=== PATIENT | male | born 1990 | race Caucasian/White ===

== ENCOUNTER 2023-07-01 20:03 | Inpatient (IN) | payer OTHER ==
[2023-07-01] MEDS ORDERED: HUMULIN R 100 UNITS in Sodium Chloride 0.9% 100 ML IVPB SCH ×3 (21:30→22:15)
[2023-07-01] MEDS ORDERED: Electrolyte Replacement Protocol 1 EACH IVPB SCH (21:54)
[2023-07-01] MEDS ORDERED: Sodium Chloride 0.9% 1,000 ML IV PRN ×2 (21:54)
[2023-07-01] MEDS ORDERED: Dextrose 50% Abboject 50 ML SYRINGE SLOW IVP PRN (21:54)
[2023-07-01] MEDS ORDERED: NS 0.9% w/ 20 MEQ KCL 1,000 ML IV PRN ×2 (21:54)
[2023-07-01] MEDS ORDERED: D5 1/2 NS w/20 mEq KCL 1,000 ML IV PRN (21:54)
[2023-07-01] MEDS ORDERED: Dextrose 5 %-0.45 % NaCl 1,000 ML IV PRN (21:54)
[2023-07-01] MEDS ORDERED: Acetaminophen 325 MG TAB PO PRN (22:08)
[2023-07-01] MEDS ORDERED: Acetaminophen 650 MG Suppository PR PRN (22:08)
[2023-07-01] MEDS ORDERED: Ondansetron ODT 4 MG TAB PO PRN (22:08)
[2023-07-01] MEDS ORDERED: Ondansetron PF 4 MG/2 ML Vial IVP PRN (22:08)
[2023-07-01] MEDS ORDERED: Nystatin Powder 15 GM BOT TOP SCH (22:15)
[2023-07-01 22:38] LABS: Anion Gap 19 mmol/L (10-20); BUN (Urea Nitrogen) 26 mg/dL (8.9-20.6); Calc. Creatinine Clearance 106 mL/min (70-130); Carbon Dioxide 20 mmol/L (22-29); Chloride 97 mmol/L (98-107); Estimated GFR 65; Glucose 212 mg/dL (70-105); Magnesium 1.9 mg/dL (1.6-2.6); Potassium 4.1 mmol/L (3.5-5.1); Sodium 132 mmol/L (136-145)
[2023-07-01] MEDS ORDERED: Magnesium 2 GM/50 ML(in water) 2 GM in Premix 1 BAG IVPB SCH (23:45)
[2023-07-02 04:31] LABS: Anion Gap 14 mmol/L (10-20); BUN (Urea Nitrogen) 16 mg/dL (8.9-20.6); Calc. Creatinine Clearance 135 mL/min (70-130); Calcium 8.5 mg/dL (7.8-10.44); Carbon Dioxide 19 mmol/L (22-29); Chloride 102 mmol/L (98-107); Estimated GFR 87; Glucose 107 mg/dL (70-105); Potassium 3.9 mmol/L (3.5-5.1); Sodium 131 mmol/L (136-145)
[2023-07-02] MEDS ORDERED: Dextrose 50% Abboject 50 ML SYRINGE SLOW IVP PRN (04:46)
[2023-07-02] MEDS ORDERED: Glucagon 1 MG/ML KIT IM PRN (04:46)
[2023-07-02] MEDS ORDERED: Dextrose 5% in Water 1,000 ML IV PRN (04:46)
[2023-07-02 04:50] LABS: HIV (1/2) Antibody/Antigen Non-Reactive (NonReactive)
[2023-07-02] MEDS: Sodium Chloride 0.9% 1,000 ML IV SCH ×3 (05:30→20:45)
[2023-07-02] MEDS ORDERED: Insulin Glargine 30 UNITS/0.3 ML VIAL SC SCH ×2 (05:30→09:00)
[2023-07-02 06:17] LABS: Anion Gap 14 mmol/L (10-20); BUN (Urea Nitrogen) 15 mg/dL (8.9-20.6); Calc. Creatinine Clearance 137 mL/min (70-130); Calcium 8.5 mg/dL (7.8-10.44); Carbon Dioxide 23 mmol/L (22-29); Chloride 98 mmol/L (98-107); Estimated GFR 87; Glucose 213 mg/dL (70-105); Potassium 3.6 mmol/L (3.5-5.1); Sodium 131 mmol/L (136-145)
[2023-07-02 08:36] VITALS: BMI 30.5
[2023-07-02] MEDS: Famotidine/PF 20 mg/2ml Vial SLOW IVP SCH ×2 (09:15→20:49)
[2023-07-02] MEDS: Nystatin Powder 15 GM BOT TOP SCH ×2 (09:15→20:49)
[2023-07-02] MEDS: HumaLOG 300 UNITS/3 ML VIAL SC PRN ×3 (12:04→20:50)
[2023-07-03] MEDS: HumaLOG 300 UNITS/3 ML VIAL SC PRN ×4 (05:47→19:28)
[2023-07-03 06:12] LABS: Anion Gap 9 mmol/L (10-20); BUN (Urea Nitrogen) 10 mg/dL (8.9-20.6); Calc. Creatinine Clearance 180 mL/min (70-130); Carbon Dioxide 28 mmol/L (22-29); Chloride 101 mmol/L (98-107); Potassium 3.8 mmol/L (3.5-5.1); Sodium 134 mmol/L (136-145)
[2023-07-03 06:13] LABS: Calcium 8.6 mg/dL (7.8-10.44); Estimated GFR 117; Glucose 191 mg/dL (70-105)
[2023-07-03] MEDS: Nystatin Powder 15 GM BOT TOP SCH (08:51)
[2023-07-03] MEDS: Famotidine/PF 20 mg/2ml Vial SLOW IVP SCH (08:51)
[2023-07-03] MEDS ORDERED: Insulin Glargine 30 UNITS/0.3 ML VIAL SC SCH (09:00)
[2023-07-03] MEDS: Sodium Chloride 0.9% 1,000 ML IV SCH (10:50)
[2023-07-03 19:20] VITALS: BP 137/88; TEMP 98.8
[2023-07-04] MEDS ORDERED: FLU VACC QS2023-24(6MOS UP)/PF 60 MCG/0.5 ML SYRINGE IM ONE (09:00)
== END 2023-07-03 19:35 | disposition home or self-care (01) | DRG 638 ==
LOC: EEVIPCON → IMCU/EMU 21:14 → T4-A 07-02 18:11
PROVIDERS: ADMIT Student in an Organized Health Care Education/Training Program; ATTEND Hospitalist
DX: E10.10 Type 1 diabetes mellitus with ketoacidosis without coma (principal); N17.9 Acute kidney failure, unspecified; I10 Essential (primary) hypertension; E87.5 Hyperkalemia; Z79.899 Other long term (current) drug therapy
CPT/HCPCS: 36415; 36416; 71045; 80048; 80053; 81001; 82010; 82805; 83690; 83735; 84100; 85025; 87389; 93005; 96361; 96365; 96366; 96376; J1650; J1815; J3475; J3480; J3490; J7050; S0028